=== PATIENT | female | born 1995 ===

== ENCOUNTER 2018-11-02 12:03 | Emergency (ER) | payer OTHER ==
[2018-11-02 12:09] VITALS: RESP 18
[2018-11-02 12:30] LABS: SQUAMOUS EPITHIAL 1 /hpf (0-5); URINE BACTERIA RARE (<OCC); URINE BILIRUBIN NEGATIVE (NEGATIVE); URINE BLOOD NEGATIVE (NEGATIVE); URINE CLARITY Clear (Clear); URINE COLOR Yellow (YELLOW); URINE GLUCOSE (UA) NORMAL (Normal); URINE LEUKOCYTE ESTERASE NEG Leu/uL (Negative); URINE PROTEIN NEGATIVE (NEGATIVE); URINE UROBILINOGEN NORMAL mg/dL (0.2-1.0)
[2018-11-02] MEDS ORDERED: Sodium Chloride 0.9% 1,000 ML IV ONE (12:31)
[2018-11-02] MEDS ORDERED: Sodium Chloride 0.9% 1,000 ML ONE (12:39)
--- NOTE | 2018-11-02 12:41 | C.PDOC ---
History Of Present Illness 23 y/o female presents to ED with multiple episodes of orange watery diarrhea since last night, associated with intermittent cramping abdominal pain, nausea, and one episode of vomiting. Patient denies any fever, chills, or recent travel. Patient reports she took imodium once. Time Seen by Provider: 11/02/18 12:31 Chief Complaint (Nursing): Abdominal Pain History Per: Patient History/Exam Limitations: no limitations Onset/Duration Of Symptoms: Days Current Symptoms Are (Timing): Still Present Past Medical History Reviewed: Historical Data, Nursing Documentation, Vital Signs Vital Signs: Last Vital Signs Temp 98.5 F 11/02/18 12:06 Pulse 110 H 11/02/18 12:06 Resp 18 11/02/18 12:06 BP 124/78 11/02/18 12:06 Pulse Ox 100 11/02/18 12:06 Primary Care Provider: Non [facility] Provider, - Medical History PMH: Asthma Family History: States: No Known Family Hx - Social History Hx Alcohol Use: Yes Hx Substance Use: No Review Of Systems Constitutional: Negative for: Fever, Chills Cardiovascular: Negative for: Chest Pain Respiratory: Negative for: Shortness of Breath Gastrointestinal: Positive for: Nausea, Vomiting, Abdominal Pain, Diarrhea Genitourinary: Negative for: Dysuria, Hematuria Musculoskeletal: Negative for: Back Pain Physical Exam - Physical Exam Appears: Non-toxic, No Acute Distress Skin: Warm, Dry Head: Normacephalic Eye(s): bilateral: Normal Inspection Oral Mucosa: Dry Neck: Supple Cardiovascular: Rhythm Regular (tachycardic), No Murmur Respiratory: Normal Breath Sounds, No Rales, No Rhonchi, No Wheezing Gastrointestinal/Abdominal: Bowel Sounds (hyperactive), Soft, Tenderness (mild left-sided and suprapubic tenderness), No Distention, No Guarding, No Rebound Extremity: No Calf Tenderness Extremity: Bilateral: Normal Color And Temperature, Normal ROM Neurological/Psych: Oriented x3, Normal Speech, Normal Cognition ED Course And Treatment - Laboratory Results Result Diagrams: 11/02/18 13:06 11/02/18 13:06 Lab Results: Urine Color Yellow (YELLOW) 11/02/18 12:23 Urine Clarity Clear (Clear) 11/02/18 12:23 Urine pH 6.0 (5.0-8.0) 11/02/18 12:23 Ur Specific [place] 1.015 (1.003-1.030) 11/02/18 12:23 Urine Protein Negative mg/dL (NEGATIVE) 11/02/18 12:23 Urine Glucose (UA) Normal mg/dL (Normal) 11/02/18 12:23 Urine Ketones Negative mg/dL (NEGATIVE) 11/02/18 12:23 Urine Blood Negative (NEGATIVE) 11/02/18 12:23 Urine Nitrate Negative (NEGATIVE) 11/02/18 12:23 Urine Bilirubin Negative (NEGATIVE) 11/02/18 12:23 Urine Urobilinogen Normal mg/dL (0.2-1.0) 11/02/18 12:23 Ur Leukocyte Esterase Neg [place]/uL (Negative) 11/02/18 12:23 Urine WBC (Auto) < 1 /hpf (0-5) 11/02/18 12:23 Ur Squamous Epith Cells 1 /hpf (0-5) 11/02/18 12:23 Urine Bacteria Rare (<OCC) 11/02/18 12:23 Urine HCG, Qual Negative (NEGATIVE) 11/02/18 12:23 Urine HCG, Qual Negative (NEGATIVE) 11/02/18 12:23 O2 Sat by Pulse Oximetry: 100 (RA) Pulse Ox Interpretation: Normal Medical Decision Making Medical Decision Making: Plan: --Labs --Urine preg --UA --Pepcid 20 mg IVP --IV fluids 1L --Zofran 4 mg IVP 1500 PT TOLERATING PO , FEELING BETTER, ABDOMENT SOFT, NT.NT. D/C HOME. RECOMMEND BRAT DIET. Disposition Counseled Patient/Family Regarding: Studies Performed, Diagnosis, Need For Followup, Rx Given - Disposition Disposition: HOME/ ROUTINE Disposition Time: 15:09 Condition: IMPROVED Additional Instructions: Please follow up with your doctor in 2-3 days. Drink increased fluids. BRAT diet- banana, rice, applesauce, tea, toast, add foods as tolerated. Take ondansetron before meals if nauseous. Return to ER for any worse symptoms. 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 - Scribe Statement The provider has reviewed the documentation as recorded by the Scribe Angelina Marinelli All medical record entries made by the Scribe were at my direction and personally dictated by me. I have reviewed the chart and agree that the record accurately reflects my personal performance of the history, physical exam, medical decision making, and the department course for this patient. I have also personally directed, reviewed, and agree with the discharge instructions and disposition.
[2018-11-02 13:10] LABS: BASO % 0.3 % (0.0-2.0); EOS # 0.2 K/uL (0.0-0.7); EOS % 1.6 % (0.0-4.0); HEMOGLOBIN 13.1 g/dL (11.0-16.0); LYMPH # 0.9 K/uL (1.0-4.3); LYMPH % 9.4 % (20.0-40.0); MEAN CELL VOLUME 87.4 fL (81.0-99.0); MEAN CORPUSCULAR HEMOGLOBIN 29.1 pg (27.0-31.0); MEAN CORPUSCULAR HGB CONC 33.3 g/dL (33.0-37.0); MEAN PLATELET VOLUME 8.9 fL (7.2-11.7); MONO # 0.6 K/uL (0.0-0.8); MONO % 6.6 % (0.0-10.0); NEUT # 7.7 K/uL (1.8-7.0); NEUT % 82.1 % (50.0-75.0); PLATELET COUNT 273 K/uL (130-400); RBC 4.51 Mil/uL (3.80-5.20); WHITE BLOOD COUNT 9.4 K/uL (4.8-10.8)
[2018-11-02 13:22] LABS: ALB/GLOB RATIO 1.2 (1.0-2.1); ALBUMIN 4.8 g/dL (3.5-5.0); ALT/SGPT 22 U/L (9-52); AST/SGOT 22 U/L (14-36); BLOOD UREA NITROGEN 8 mg/dL (7-17); CALCIUM 9.7 mg/dl (8.6-10.4); GFR NON-AFRICAN AMERICAN > 60; LIPASE 62 U/L (23-300)
[2018-11-02 14:07] LABS: BANDS 3 % (0-2); EOSINOPHIL 1 % (0-4); LYMPHOCYTE 7 % (20-40); MONOCYTE 6 % (0-10); NEUTROPHIL 83 % (50-75); TOTAL CELLS COUNTED 100
[2018-11-02 14:08] LABS: ANISOCYTOSIS SLIGHT; PLATELET ESTIMATE NORMAL (NORMAL)
[2018-11-02 14:09] LABS: LARGE PLATELETS PRESENT; POLYCHROMIC SLIGHT
[2018-11-02 14:55] VITALS: BP 102/58; PULSE 90; TEMP 99.6
[2018-11-02 15:11] VITALS: O2SAT 100
== END 2018-11-02 15:22 | disposition home or self-care (01) ==
LOC: C.ER 12:03
DX: K52.9 Noninfective gastroenteritis and colitis, unspecified (principal)
CPT/HCPCS: 80053; 81001; 83690; 84703; 85025; 96361; 96374; 96375; 99285; J1885; J2405; J7030